=== PATIENT | female | born 1970 | race African-American/Black ===

== ENCOUNTER 2017-04-04 17:28 | Emergency (ER) | payer OTHER ==
[~2017-04-04] VITALS: Ht 165.1 cm; Wt 59.0 kg
--- NOTE | 2017-04-04 20:00 | ED HEADACHE COMPLAINT ---
History of Present Illness General Chief Complaint: Headache Stated Complaint: HEADACHE,FEELS KNOT ON BACK OF HEAD Source: patient, old records Exam Limitations: no limitations Vital Signs & Intake/Output Vital Signs & Intake/Output Vital Signs Date Time Temp Pulse Resp B/P B/P Pulse O2 O2 Flow FiO2 Mean Ox Delivery Rate 04/04 2021 97.8 65 22 141/97 99 Allergies Coded Allergies: No Known Allergies (04/04/17) Triage Note: RECEIVED 47 YO FEMALE C/O WOKE UP THIS AM WITH A LUMP ON THE BACK OF HER HEAD AND A SEVERE H/A, NEAR LUMP, 06/25. + NAUSEA, INTERMITTENT H/A'S X 8 MONTHS. Triage Nurses Notes Reviewed? yes Onset: Gradual Duration: day(s): (1), constant Timing: recent history Quality/Severity: mild, moderate Severity Numbers: 4 Head Injury Location: occipital No Modifying Factors: none Associated Symptoms: denies HPI: 47-year-old female presents to ER after she states she woke up with a small bump to the back of her head. She denies any known injury or trauma no history of similar symptoms in the past that is tender to palpation. She states she has had headaches on and off for the past several months up to the past year. She is not taken anything for her symptoms no fever no chills. She denies any pain with her neck movement back pain chest pain fever. No modifying factors no vision changes no nausea no vomiting Past History Travel History Traveled to [place] past 21 day No Medical History Any Pertinent Medical History? none Neurological: NONE EENT: NONE Cardiovascular: NONE Respiratory: NONE Gastrointestinal: NONE Hepatic: NONE Renal: NONE Musculoskeletal: NONE Psychiatric: NONE Endocrine: NONE Blood Disorders: NONE Cancer(s): NONE Surgical History Surgical History: none Psychosocial History What is your primary language Divehi Tobacco Use: Current Daily Use Daily Tobacco Use Amount/Type: => 5 Cigarettes daily Family History Hx Contributory? No Review of Systems Review of Systems Constitutional: Reports: see HPI. All Other Systems: Reviewed and Negative Comments Review of systems: See HPI, All other systems negative. Constitutional, no chills no fever, no malaise HEENT: No visual changes no sore throat no congestion, Cardiovascular: No chest pain , no palpitation Skin: no rashes, no change in skin Respiratory: No dyspnea no cough no sputum GI: No nausea no vomiting, no diarrhea, : No dysuria Muscle skeletal: No joint pain, no joint swelling, no back pain, no neck pain, Neurologic: No numbness no confusion headache Psych: No stress Heme/endocrine: No bruising no bleeding Immunology: No lymphadenopathy Physical Exam Physical Exam General Appearance: well developed/nourished, no apparent distress, alert, awake Cranial Nerves: normal hearing Comments: Well-developed well-nourished person in no acute distress HEENT: Normal EENT exam; PERRL, EOMI, small 1 cm epidermal cyst no overlying erythema and induration no nystagmus. HEAD is atraumatic. moist mucous membranes. Neck: Supple, no meningeal signs normal range of motion Back: Nontender, no CVA tenderness. Full range of motion Cardiovascular: Regular rate and rhythms no murmurs rubs Respiratory: Chest nontender.There were no bony deformities, no asymmetry. No respiratory distress. Patient speaking in full complete sentences. Breath sounds clear to auscultation bilaterally: NO W/R/R Extremity: No edema, full range of motion of extremities, normal and equal pulses bilaterally, 5 out of 5 strength noted to bilateral upper and lower extremities Neuro: Alert oriented x3, motor sensory normal, cranial nerves II through XII grossly intact. There were no obvious focal neurologic abnormalities. Negative Brudzinski's negative Kernig's Skin: No appreciable rash on exposed skin, skin is warm and dry. Psych: Mood and affect is normal, memory and judgment is normal. Core Measures Severe Sepsis Present: No Septic Shock Present: No Progress Differential Diagnosis: cluster MAJOR, IC mass/tumor, intracranial Hem., meningitis , migraine MAJOR, musculoskeletal pain, sinusitis, tension MAJOR Plan of Care: Patient is declining CAT scan, she is declining anything to go home with a small bump to the back of her head consistent with cyst there is no erythema or induration. Patient feels comfortable with plan I again asked and recommended that the patient to CAT scan which she is refusing. Patient is ambulatory with steady gait she feels comfortable going home clear for discharge Departure Departure Time of Disposition: 2030 Disposition: HOME OR SELF CARE Condition: Stable Clinical Impression Primary Impression: Headache Referrals: PATIENT HAS NO PRIMARY CARE DR (PCP/Family) Additional Instructions: Follow-up with your primary care physician. Tylenol Motrin as needed for pain and warm compresses as needed Departure Forms: Customer Survey General Discharge Information
[2017-04-04 20:21] VITALS: BP 141/97
== END 2017-04-04 20:44 ==
LOC: ERH 17:28
DX: R51 Headache (principal)